=== PATIENT | female | born 1980 | race Caucasian/White ===

== ENCOUNTER 2024-11-25 11:25 | Outpatient (CLI) | payer BC, SELFPAY | END 2024-11-25 11:26 | disposition home or self-care (01) | PROVIDERS: Visit Provider Physician Assistant | DX: M79.18 Myalgia, other site (principal); R53.83 Other fatigue | CPT/HCPCS: 80053; 84443; 86140 ==

== ENCOUNTER 2024-12-19 09:10 | Outpatient (CLI) | payer BC, SELFPAY | END 2024-12-19 09:11 | disposition home or self-care (01) | PROVIDERS: Visit Provider Physician Assistant Medical | DX: M79.641 Pain in right hand (principal); M79.642 Pain in left hand; M79.671 Pain in right foot; M79.672 Pain in left foot; R20.2 Paresthesia of skin; Z79.899 Other long term (current) drug therapy | CPT/HCPCS: 82306; 82550; 84550; 86038; 86039; 86200; 86431; 86618; 86812 ==

== ENCOUNTER 2024-12-31 08:06 | Outpatient (CLI) | payer BC, SELFPAY ==
--- NOTE | 2024-12-31 09:53 | W.ANESCHARGE ---
Anesthesia Charges Start Date/Time Anesthesia Start Date: 12/31/24 Anesthesia Start Time: 09:27 Stop Date/Time Anesthesia Stop Date: 12/31/24 Anesthesia Stop Time: 09:49 Coding CPT Codes CPT Codes: NARDA LWR INTST SCR COLSC - 64369 ([id number]) P1 - NORMAL HEALTHY PATIENT, QX - CERTIFIED NURSES AIDE SVJosé Luis W/ MED DIRECTION, QK - PHYSICIST SOLID EARTH 2-4 CNCRNT ANEPepper PROC
--- NOTE | 2024-12-31 09:53 | P.ANES_ITS ---
Anesthesia Charges Start Date/Time Anesthesia Start Date: 12/31/24 Anesthesia Start Time: 09:27 Stop Date/Time Anesthesia Stop Date: 12/31/24 Anesthesia Stop Time: 09:49 Coding CPT Codes CPT Codes: NARDA LWR INTST SCR COLSC - 60748 ([id number]) P1 - NORMAL HEALTHY PATIENT, QX - INSPECTOR WIRE ROPE SVJosé Luis W/ MED DIRECTION, QK - CUTTER BRAKE LINING 2-4 CNCRNT ANEPepper PROC
--- NOTE | 2024-12-31 09:56 | P.ANES_ITS ---
Anesthesia Charges Start Date/Time Anesthesia Start Date: 12/31/24 Anesthesia Start Time: 09:27 Stop Date/Time Anesthesia Stop Date: 12/31/24 Anesthesia Stop Time: 09:49 Coding CPT Codes CPT Codes: NARDA LWR INTST SCR COLSC - 82380 ([id number]) P1 - NORMAL HEALTHY PATIENT, QK - ACCESS SERVICES LIBRARIAN 2-4 CNCRNT ANES PROC, QX - HOSPITAL TECHNICIAN SVC W/ MED DIRECTION
--- NOTE | 2024-12-31 09:56 | W.ANESCHARGE ---
Anesthesia Charges Start Date/Time Anesthesia Start Date: 12/31/24 Anesthesia Start Time: 09:27 Stop Date/Time Anesthesia Stop Date: 12/31/24 Anesthesia Stop Time: 09:49 Coding CPT Codes CPT Codes: NARDA LWR INTST SCR COLSC - 30075 ([id number]) P1 - NORMAL HEALTHY PATIENT, QK - CHIP CRUSHER OPERATOR 2-4 CNCRNT ANES PROC, QX - MAMMOGRAPHY TECHNOLOGIST SVC W/ MED DIRECTION
== END 2024-12-31 08:07 | disposition home or self-care (01) ==
LOC: OP CLINIC 08:06
PROVIDERS: PCP Physician Assistant Medical; Visit Provider Surgery
DX: Z12.11 Encounter for screening for malignant neoplasm of colon (principal)
CPT/HCPCS: 00812; 45378; J2704

== ENCOUNTER 2025-01-15 09:00 | Outpatient (RCR) | payer BC, SELFPAY | END 2025-04-01 14:22 | disposition home or self-care (01) | PROVIDERS: PCP Physician Assistant Medical; Visit Provider Physician Assistant Medical | DX: M72.2 Plantar fascial fibromatosis (principal); R20.2 Paresthesia of skin; M25.572 Pain in left ankle and joints of left foot; Z51.89 Encounter for other specified aftercare | CPT/HCPCS: 97110; 97140; 97161 ==

== ENCOUNTER 2025-05-27 10:15 | Day surgery (SDC) | payer BC, SELFPAY ==
[2025-05-27] VITALS (9 sets, daily range): BP systolic 108–130; BP diastolic 57–77; PULSE 78–88; RESP 16; TEMP 37.1; O2SAT 98–100; BMI 28.3
[2025-05-27] MEDS: ETHYL CHLORIDE 1 APPLICATION 1 APPLIC TOPICAL (10:37)
[2025-05-27] MEDS: BUPIVACAINE 0.5% 30 ML INJECTION (10:37)
--- NOTE | 2025-05-27 12:18 | SUR.OPER ---
PATIENT QUESTIONS ANSWERED SATISFACTORILY PREOPERATIVELY. PATIENT BROUGHT TO OR #1 PER WHEELCHAIR. Patient positioned supine on OR #1 bed. The perioperative team supported arms bilaterally on arm boards. Final approval of positioning by surgeon.
--- NOTE | 2025-05-27 12:27 | W.PM.H&PU ---
History & Physical Update History & Physical Update H&P Reviewed and patient assessed: No changes noted
--- NOTE | 2025-05-27 12:29 | PM.ORPRC ---
Procedure Note Date of procedure: 05/27/25 Procedure: PREOPERATIVE DIAGNOSIS: 1. Right carpal tunnel syndrome POSTOPERATIVE DIAGNOSIS: 1. Right carpal tunnel syndrome PROCEDURE: 1. Right open carpal tunnel release SURGEON: Romario Lewis MD. GOLDBEATER: Arely Aguilar P.A.-C. An human resources assistant manager was critical for this case to aid in patient positioning, tissue retraction, limb manipulation/positioning, and closure. ANESTHESIA: Local anesthetic IMPLANTS: None ESTIMATED BLOOD LOSS: 0 mL TOURNIQUET: 8 min at 250 mmHg COMPLICATIONS: None INDICATIONS: The patient is a pleasant 44-year-old female with history of bilateral hand numbness and tingling, right worse than left. Symptoms were not improving with conservative treatment, and patient elected to proceed with surgical intervention consisting of right carpal tunnel release. Prior to surgery, the risks and benefits of the procedure were discussed with patient, all questions were answered, and informed consent was obtained. DESCRIPTION OF PROCEDURE: Patient was seen preoperatively and operative site was marked. The subcutaneous tissues overlying the right carpal tunnel were injected with a combination of 0.5% bupivacaine and 1% lidocaine with epinephrine. Patient was then brought to the operating room and placed in the supine position on the OR table. A tourniquet was placed on the patient's right arm, and right upper extremity was prepped and draped in usual sterile fashion. A surgical time-out was performed confirming patient name, procedure, and location. The operative extremity was then elevated and exsanguinated with an Esmarch, and the tourniquet was inflated to 200 mmHg. A skin incision measuring approximately 3-4 cm was made in line with the ring finger extending from the distal wrist flexion crease to Adrian's cardinal line. Blunt dissection was used to dissect through subcutaneous tissues and palmar fascia. Transverse carpal ligament was identified and was sharply incised proximally with care taken to protect the underlying median nerve. The transverse carpal ligament was then sharply divided along its ulnar border using tenotomy scissors and a [place] blade with care taken to protect the underlying median nerve. Once the transverse carpal ligament was divided, the antebrachial fascia was released proximally. The wound was then irrigated with normal saline, and the tourniquet was released. Total tourniquet time was 8 minutes. Hemostasis was achieved with bipolar electrocautery. The skin incision was closed with 4-0 nylon horizontal mattress sutures, and a sterile dressing was applied. Patient was then transferred to the recovery room in stable condition. POSTOPERATIVE PLAN: 1. Patient will be discharged to home day of surgery. 2. Ice and elevation as needed for pain and swelling. 3. Tylenol and/or ibuprofen as needed for pain. Tramadol as needed for more severe pain. 4. They were given instructions for wound care and finger range of motion exercises. 5. Return to the clinic for follow-up evaluation in 10-14 days for wound check and suture removal.
[2025-05-27] MEDS: BACITRACIN OINTMENT BULK TUBE 1 APPLIC TOPICAL (12:49)
== END 2025-05-27 13:24 | disposition home or self-care (01) ==
LOC: OR 10:16
PROVIDERS: PCP Physician Assistant Medical; Visit Provider Orthopaedic Surgery
PROC: (CPT 64721; principal; 2025-05-27 11:30)
DX: G56.01 Carpal tunnel syndrome, right upper limb (principal)
CPT/HCPCS: 64721; J0665